=== PATIENT | male | born 1985 | race Caucasian/White ===

== ENCOUNTER 2018-03-04 20:19 | Emergency (ER) | payer BC ==
[2018-03-04] MEDS ORDERED: 0.9 % SODIUM CHLORIDE 1,000 ML IV ONE ×3 (20:28→22:07)
[2018-03-04] MEDS ORDERED: KETOROLAC TROMETHAMINE 30 MG/1ML VIAL ONE (20:28)
[2018-03-04] MEDS ORDERED: KETOROLAC TROMETHAMINE 30 MG/1ML VIAL IVP ONE (20:35)
[2018-03-04] MEDS ORDERED: fentaNYL CITRATE/PF 100 MCG/ 2ML AMP ONE (20:36)
[2018-03-04] MEDS ORDERED: fentaNYL CITRATE/PF 100 MCG/ 2ML AMP IVP ONE (20:36)
[2018-03-04] MEDS ORDERED: TAMSULOSIN HCL 0.4 MG CAP.ER.24H PO ONE (23:21)
--- NOTE | 2018-03-04 23:42 | ED Physician Documentation ---
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 Patient reports he has passed 6 stones this year. States his pain is similar but worse than previous stones; c/o difficulty urinating. 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 denies: constipation, black stools, bloody urine, bloody stools CVS/RESP: none EYES/ENT: none MS/SKIN/LYMPH: none NEURO/PSYCH: none - SOCIAL HX Smoking History: cigarettes - FAMILY HX Family History: denies: none - PAST HX Past History: kidney stones Ischemic Bowel Risk Factors: none Other History: other (abdominal wall cyst - RLQ) Medications: denies: none Allergies: NKDA, see nurses note - VITAL SIGNS Vital Signs: Vital Signs Temp Pulse Resp BP Pulse Ox 98.6 F 102 H 24 138/98 96 03/04/18 20:20 03/04/18 20:20 03/04/18 20:20 03/04/18 20:20 03/04/18 20:20 - REVIEWED ASSESSMENTS Nursing Assessment Reviewed: Yes Vitals Reviewed: Yes Progress - Progress Progress: Medicated with Toradol IV and NS on arrival. Difficulty voiding for UA. Reviewed CT findings with patient, 1 cm obstructive stone in distal right ureter. Patient would like to return home and see is urologist, does not want transfer and treatment locally. Home is [place]. Discharged with report, CD and prescriptions. Reviewed discharge instructions with patient, verbalized understanding. ED Results Lab/Radiology - Radiology Radiology Impressions: CT Abdomen/pelvis without contrast History: Rt side flank pain, hematuria, Hx stones No comparison studies Clear lung bases. No free intraperitoneal air. No acute osseous pathology The liver, spleen, adrenal glands, gallbladder, pancreas are within normal limits. Bilateral several nonobstructing renal calculi are seen, largest measures 8 mm in the left kidney and 5 mm in the right kidney. There is moderate right hydronephrosis and hydroureter with an obstructing 1 cm calculus in the distal right ureter. Bladder contains some hyperdense material which may be due to presence of blood Prostatic calcification is present No bowel obstruction. Appendix is within normal limits, several subcentimeter mesenteric and pelvic lymph nodes are present. Right lower anterior abdominal wall thickening/ hematoma measuring 6.8 cm. Impression: 1. Right obstructive uropathy. Moderate right hydronephrosis and hydroureter with an obstructing 1 cm calculus in the distal right ureter. Hyperdense bladder contents may be due to presence of blood products 2. Normal appendix. 3. Bilateral nonobstructing renal calculi are present. Evaluation of renal parenchyma is limited secondary to lack of contrast, elective ultrasound is suggested 4. There is significant fat stranding and soft tissue swelling of the lower anterior right pelvic wall, cause is indeterminate, questionable for hematoma, please correlate with examination 5. Largely distended stomach. - Orders Orders: ED Orders Category Date Time Status Place IV Lock 1T Care 03/04/18 20:35 Active RENAL STONE PROTOCOL [CT ABD & PELVIS W/O CON] Stat Exams 03/04/18 Ordered UA W/MICRO IF INDICATED Stat Lab 03/04/18 20:35 Ordered Urine drug screen [DRUG SCREEN URINE MEDICAL ONLY] Stat Lab 03/04/18 21:15 Ordered 0.9 % Sodium Chloride [Normal Saline] 1,000 ml Med 03/04/18 20:28 Discontinued IV .STK-MED 0.9 % Sodium Chloride [Normal Saline] 1,000 ml Med 03/04/18 20:35 Discontinued IV NOW 0.9 % Sodium Chloride [Normal Saline] 1,000 ml Med 03/04/18 22:07 Discontinued IV NOW Ketorolac Tromethamine [Toradol] Med 03/04/18 20:28 Discontinued 30 mg .ROUTE .STK-MED ONE Ketorolac Tromethamine [Toradol] Med 03/04/18 20:35 Discontinued 30 mg IVP NOW ONE Tamsulosin HCl [Flomax] Med 03/04/18 23:21 Discontinued 0.4 mg PO NOW ONE fentaNYL CITRATE/PF [Duragesic] Med 03/04/18 20:36 Discontinued 100 mcg .ROUTE .STK-MED ONE fentaNYL CITRATE/PF [Duragesic] Med 03/04/18 20:36 Discontinued 50 mcg IVP NOW ONE Abdominal Pain Physical Exam - Physical Exam General Appearance: moderate distress EENT: eye inspection normal, DELMER NECK: normal inspection RESPIRATORY: no resp distress, chest non-tender, breath sounds normal CVS: reg rate & rhythm, heart sounds normal, equal pulses, no murmur, no gallop , PMI nml, no JVD, no friction rub, 24 ABDOMEN: soft, no organomegaly, normal bowel sounds, no abdominal bruit, no distension, other (protuberant abdomin - 6 cm round, firm area palpable RLQ) BACK: normal inspection, CVA tenderness (R) SKIN: normal color, warm/dry, NR, INT, PAL, DR EXTREMITIES: non-tender, normal range of motion, no evidence of injury, no edema , J, SECURITY SUPPORT ANALYST NEURO: oriented X3, CN's nml as tested, motor nml, sensation nml Vital Signs: Vital Signs Temp Pulse Resp BP Pulse Ox 98.6 F 102 H 24 138/98 96 03/04/18 20:20 03/04/18 20:20 03/04/18 20:20 03/04/18 20:20 03/04/18 20:20 Discharge Clincal Impression: Renal calculus, right, Right flank pain Prescriptions: Ketorolac Tromethamine [Toradol] 10 mg PO TID #15 tablet Tamsulosin HCl [Flomax] 0.4 mg PO [id number] #10 cap.er.24h Referrals: Primary Doctor,Marry [Primary Care Provider] - 2 Days Additional Instructions: superintendent warehouse your prescriptions in the morning before leaving [place]. Call your urologist in the morning. Make an appointment to be seen as soon as possible. Increase your fluid intake to at least 64 oz of water a day Strain all urine. If the stone is passed, place it in a specimen cup and take it to your primary care physician for analysis. You may use Tylenol every 4 hours as needed for pain. Limit your total Tylenol to 4G per day Do not take ibuprofen, aleve, naproxen or any other NSAID while you are on toradol. Condition: Stable Disposition: 01 HOME, SELF-CARE Decision to Admit: NO Decision Time: 23:39
[2018-03-04] MEDS ORDERED: HYDROcodone /APAP 5/325 1 EACH TABLET PO ONE (23:43)
[2018-03-05 00:24] VITALS: BP 128/72
--- NOTE | 2018-03-05 01:00 | Diagnostic Imaging Report ---
Name: IDALIA BETANCOURT : 83 Acc #: [id number] DOS: March 04, 2018 10:15:39 PM CDT Mod: CT\SR Desc: CT ABD PELVIS W/O CO 1 of 1 DEBORAH SHARP (CUT OFF SAW TENDER METAL) - ER [facility] [id number] [address] [facility] [address] [place] [address]. [id number] Report Submission Date: March 04, 2018 11:17:16 PM CDT Patient Study Name: IDALIA BETANCOURT Date: March 04, 2018 10:15:39 PM CDT Modality Type: CT\SR Gender: M Description: CT ABD PELVIS W/O CO : 83 Institution: [facility] Physician: DEBORAH SHARP (CUT OFF SAW TENDER METAL) - ER CT Abdomen/pelvis without contrast History: Rt side flank pain, hematuria, Hx stones No comparison studies Clear lung bases. No free intraperitoneal air. No acute osseous pathology The liver, spleen, adrenal glands, gallbladder, pancreas are within normal limits. Bilateral several nonobstructing renal calculi are seen, largest measures 8 mm in the left kidney and 5 mm in the right kidney. There is moderate right hydronephrosis and hydroureter with an obstructing 1 cm calculus in the distal right ureter. Bladder contains some hyperdense material which may be due to presence of blood Prostatic calcification is present No bowel obstruction. Appendix is within normal limits, several subcentimeter mesenteric and pelvic lymph nodes are present. Right lower anterior abdominal wall thickening/ hematoma measuring 6.8 cm. Impression: 1. Right obstructive uropathy. Moderate right hydronephrosis and hydroureter with an obstructing 1 cm calculus in the distal right ureter. Hyperdense bladder contents may be due to presence of blood products 2. Normal appendix. 3. Bilateral nonobstructing renal calculi are present. Evaluation of renal parenchyma is limited secondary to lack of contrast, elective ultrasound is suggested 4. There is significant fat stranding and soft tissue swelling of the lower anterior right pelvic wall, cause is indeterminate, questionable for hematoma, please correlate with examination 5. Largely distended stomach. Electronically signed on March 04, 2018 11:17:16 PM CDT by: Davina BARTON
[2018-03-05 07:45] LABS: APPEARANCE,URINE CLEAR (CLEAR); COLOR,URINE AMBER (YELLOW); OCCULT BLOOD,URINE 3+ (NEGATIVE)
[2018-03-05 07:46] LABS: PH URINE 5.5 (5.0 - 8.0); UROBILINOGEN URINE 0.2 Eu (0.2-1.0)
== END 2018-03-05 00:05 | disposition home or self-care (01) ==
LOC: ED 20:19
DX: N20.0 Calculus of kidney (principal); R10.9 Unspecified abdominal pain
CPT/HCPCS: 74176; 81002; A9270; J1885; J3010; J7030; 96360; 96361; 96374; 96375; S1016